=== PATIENT | female | born 1975 | race Caucasian/White ===

== ENCOUNTER 2021-01-12 14:19 | Outpatient (REF) | payer OTHER, SELFPAY ==
--- NOTE | ~2021-01-12 | FL_ITS ---
EXAMINATION: XR BARIUM SWALLOW CLINICAL INFORMATION: Intermittent trouble swallowing, mild thyroid fullness. COMPARISON: None. TECHNIQUE: Routine modified barium swallow was performed in upright lateral view under fluoroscopy in the presence of speech therapist. FINDINGS: Following oral administration of thin, thick barium, barium pudding, barium-coated chicken and barium-coated cookie, there is normal oral mastication and propagation of bolus from the oral cavity through the pharynx and esophagus without any evidence of obstruction, narrowing or stricture. No laryngeal penetration or aspiration seen. There is mild reduction in C5-C6 disc space with mild posterior spondylosis. FLUOROSCOPY TIME: 1.2 minutes. DOSE AREA PRODUCT: 3.097 uGy-m2 (microgray-meter squared). FL/FL barium swallow modified IMPRESSION: Unremarkable modified barium swallow exam. Correlate with speech therapy results.
--- NOTE | 2021-01-13 14:28 | MHC.SL.IMP ---
Date of Plan of Treatment: 01/12/21 Onset of Symptoms/Illness: 08/12/20 Date Treatment Started: 01/12/21 Admitting Diagnosis: N/A Primary Speech & Language Diagnosis: R13.14 Pharyngoesophageal Phase Dysphagia Reason for Today's Visit: 34613 Modified Barium Swallow Study Pre-evaluation Dietary Consistencies: Regular Pre-evaluation Liquid Consistency: Thin Pre-evaluation Medication Administration: Whole with Liquid Medical History: Modified Barium Swallow Study Fluoroscopic Evaluation of Swallowing Function CPT Code 45480 Evaluation Year: 2020 Reason for Study: Patient describes throat fullness. Referring Physician: Katelynn Menendez M.D. Evaluating Clinician: Cecily Oneill M.A. [facility] [employer] Study Number: 1 Patient Name: Yasmine Renae Status: Outpatient, Ambulatory Age: 45 Gender: Female MEDICAL HISTORY: Year of Onset or Diagnosis: 2020 Past Medical History: Hypertension Current (pre-evaluation) Intake/Diet: Route: PO Diet Grade: Regular Liquid Consistencies: Thin Pre-Study Functional Oral Intake Scale (FOIS): 7- Total oral intake with no restrictions Pain: None reported at time of study SUBJECTIVE: Patient is a 45 year old woman who attended this exam unaccompanied, and provided relevant background information included in this report. Patient was referred for a modified barium swallow study (MBSS) by her primary care physician, Katelynn Menendez M.D. Per Dr. Menendez, patient presented with ?intermittent trouble swallowing and mild thyroid fullness.? Per MD note, her ultrasound and TFTs were normal. Patient reports that certain foods, such as bread and bagels, are difficult for her to swallow. She describes ?tightness? and ?pressure? inside her throat. She reports onset of dysphagia in July 2020. She reports that she was brought to the ED at [facility] 2 months ago when she experienced chest pain, she was put on a environmental monitoring specialist, and was found to be hypertensive. Reportedly, her workup was otherwise negative. Oral Motor Exam Facial Symmetry: Symmetrical Mouth Occlusion: Normal Oral-Facial Teeth Characteristics: Intact/Normal Oral-Facial Lip Pucker Description: Normal Oral-Facial Smile (Lips) Description: Normal Oral-Facial Puff Cheeks Description: Normal Tongue Size: Normal Tongue Frenum Length: Normal Tongue Excursion Description: Normal Tongue Range of Movement Description: Normal Tongue Speed of Movement Description: Normal Tongue Strength of Movement (against opposing pressure): Normal Is patient able to manage secretions?: Yes Is patient able to produce volitional cough?: Yes Food and Liquid Trials: Oral Impairment: Lip Closure: Did not test Oral Impairment: Tongue Control During Bolus Hold: 0=Cohesive bolus between tongue to palatal seal Oral Impairment: Bolus Preparation/Mastication: 0=Timely and efficient chewing and mashing Oral Impairment: Bolus Transport/Lingual Motion: 0=Brisk tongue motion Oral Impairment: Oral Residue: 1=Trace residue lining oral structures Oral Impairment:Initiation of Pharyngeal Swallow: 2=Bolus head at posterior laryngeal surface of epiglottis Pharyngeal Impairment: Soft Palate Elevation: 0=No bolus between soft palate (SP)/pharyngeal wall (PW) Pharyngeal Impairment: Laryngeal Elevation: 0=Complete superior movement of thyroid cartilage (see description) Pharyngeal Impairment: Anterior Hyoid Excursion: 0=Complete anterior movement Pharyngeal Impairment: Epiglottic Movement: 0=Complete inversion Pharyngeal Impairment: Laryngeal Vestibular Closure:: 0=Complete: no air/contrast in laryngeal vestibule Pharyngeal Impairment: Pharyngeal Stripping Wave: 0=Present: complete Pharyngeal Impairment: Pharyngeal Contraction: Did not test Pharyngeal Impairment: Pharyngoesophageal Segment Openin=Partial distention/partial duration: partial obstruction of flow Pharyngeal Impairment: Tongue Base (TB) Retraction: 2=Narrow column of contrast/air between TB and posterior PW Pharyngeal Impairment: Pharyngeal Residue: 0=Complete pharyngeal clearance Pharyngeal Impairment: Esophageal Clearance Upright Position: 1=Esophageal retention Impressions and Recommendations Clinical Observations: OBJECTIVE: Time-out: performed at 02:45 Evaluation Start: 02:30; Stop: 02:40 Patient Positioning: Seated 70-90 degrees Viewing Planes: LATERAL ONLY Contrast: MBSImP? Standardized Protocol using commercially prepared, standardized Barium viscosities, including: Varibar? THIN LIQUID (40% w/v, <15 cps) , 1/2 Shortbread Cookie (1 x1 x.25 ) MBSImP ID: [id number] MBSImP Results: Lip closure for intraoral bolus containment could not be assessed due to logistical reasons not related to physiologic impairment. Tongue control during bolus hold maintained a cohesive bolus held between tongue to palate seal. Bolus preparation and mastication resulted in timely and efficient chewing and mashing. Bolus transport/lingual motion was with brisk tongue motion. Oral residue was a trace, lining oral structures. Initiation of the pharyngeal swallow occurred as the bolus head was at the posterior laryngeal surface of the epiglottis. Soft palate elevation resulted in no bolus between the soft palate and the pharyngeal wall. Laryngeal elevation demonstrated complete superior movement of the thyroid cartilage with complete approximation of the arytenoids to the epiglottic petiole. Anterior hyoid excursion demonstrated complete anterior movement. Epiglottic movement resulted in complete inversion. Laryngeal vestibular closure was complete, as indicated by no air or contrast within the laryngeal vestibule at the height of the swallow. Pharyngeal stripping wave was present and complete. Pharyngeal contraction could not be determined due to logistical reasons not related to physiologic impairment. Pharyngoesophageal segment opening demonstrated partial distension/partial duration, with partial obstruction of bolus flow. Tongue base retraction allowed a narrow column of contrast or air between the retracted tongue base and the posterior pharyngeal wall. Pharyngeal residue was not present. There was complete pharyngeal clearance. Esophageal clearance in the upright position resulted in esophageal retention. Oral Impairment Score: 2 (absence of score, component 1) Pharyngeal Impairment Score: 3 (absence of score, component 13) Esophageal Impairment Score: 1 Laryngeal Penetration and Aspiration: Neither penetration nor aspiration was observed in today's study with Cookie, Thin. ASSESSMENT: This exam was conducted by a multidisciplinary team, which included a speech-language pathologist, radiologist, and sales support technician. Patient was seated at optimal upright 90 degree position for lateral view only. She trialed the following liquid and solid consistencies: -5 mL thin liquid barium -cup sip thin liquid barium with bolus hold -consecutive cup sips thin liquid barium -pureed solid (mixture applesauce with barium paste) -ground solid (mixture chicken salad with barium paste) -regular solid (Tona Doone cookie coated with barium paste) No evidence of aspiration or penetration with solids and liquids during this exam. Good oral and pharyngeal clearance. Note partial distention/partial duration with partial obstruction of flow through pharyngoesophageal segment opening. Note esophageal retention. Patient subsequently took a sip of thin liquid, which reduced esophageal residue. The following compensatory strategies have not been used until today's study, but when employed, improved swallowing function: Liquid Wash decreased Esophageal Residue Liquid Intake Recommendation: Thin Liquid Intake Strategies: Unrestricted Dietary Recommendations: Regular Medication Administration: Whole with Liquid Compensatory Strategies Recommended: Sitting Upright (90 deg) Alternate Liquids/Solids Supervision during eating and or drinking: None Needed Recommendation for Speech Therapy: NA:Typical Evaluation PLAN: Intake Recommendations: Route: PO Diet Grade: Regular Liquid Consistencies: Thin Post-Study Functional Oral Intake Scale (FOIS): 7- Total oral intake with no restrictions Recommend patient to resume unmodified diet REGULAR solids and THIN liquids. Further ST intervention is not warranted as oral and pharyngeal phases of patient?s swallow physiology are deemed to be within functional limits. Note evidence of esophageal retention, which was reduced with liquid wash. Patient may benefit from consult with a G.I. specialist to rule in/out esophageal dysphagia. Suggested Referrals: The patient might benefit from a referral to: Gastroenterology Indication for Referral: Evidence of esophageal retention. Therapy Recommendations: Therapy will be discontinued Prognosis for Improvement: The prognosis for the patient to meet nutritional needs by mouth is excellent based on degree of impairment. Clinician - Supplemental, Miscellaneous Communication: It is important to note MBSS objective studies are snapshots in time and Patient function might vary with factors such as time of day or concomitant medical conditions. For this reason, the final treatment plan for this patient should rest with their medical care team. Additional recommendations should be considered with the totality of the Patient in mind.? Thank for the opportunity to participate in the care of this patient. If you have any questions about the content of this report, please contact the [facility] at [facility].? ? Education: Education regarding findings from today's study and plans for therapy were provided to Patient only through Verbal Instruction. Understanding was expressed by the Patient only. E Commerce Manager Clinician/Clinical Fellow: No Supervisory Statement: N/A Speech Language Pathologist: Cecily Oneill M.A., CCC-LAMP STACK DEVELOPER
== END 2021-01-12 14:20 | disposition home or self-care (01) ==
LOC: HO.XRAY 14:19
PROVIDERS: Visit Provider Family Medicine
DX: R13.14 Dysphagia, pharyngoesophageal phase (principal)
CPT/HCPCS: 74230; 92611